=== PATIENT | male | born 1975 | race Caucasian/White ===

== ENCOUNTER 2019-08-14 10:36 | Emergency (ER) | payer SELFPAY ==
[~2019-08-14] VITALS: Ht 182.9 cm; Wt 100.0 kg
[2019-08-14 10:54] VITALS: BP 160/85; TEMP 98.2
[2019-08-14 11:30] LABS: COLLECTION METHOD CLEAN CATCH
[2019-08-14 11:40] LABS: PH 7 (5-8); SQUAMOUS EPITHELIAL None Seen /hpf; URINE APPEARANCE Clear; URINE BACTERIA None Seen /hpf; URINE BILIRUBIN Negative (NEGATIVE); URINE BLOOD Negative (NEGATIVE); URINE COLOR Yellow; URINE GLUCOSE Negative (NEGATIVE); URINE KETONE Negative (NEGATIVE); URINE LEUKOCYTE ESTERASE Negative (NEGATIVE); URINE NITRATE Negative (NEGATIVE); URINE PROTEIN(semi-quant) Negative (NEGATIVE); URINE RBC 0-2 /hpf; URINE UROBILINOGEN Negative (NEGATIVE)
[2019-08-14] MEDS ORDERED: NORCO 325 MG-51 TAB PO (13:18)
[2019-08-14 13:30] VITALS: PULSE 85
== END 2019-08-14 13:35 | disposition home or self-care (01) ==
LOC: COL.ER 10:36
PROVIDERS: Emergency Medicine
DX: K40.90 Unilateral inguinal hernia, without obstruction or gangrene, not specified as recurrent (principal)
CPT/HCPCS: J1885

== ENCOUNTER 2021-02-09 10:28 | Emergency (ER) | payer SELFPAY ==
[~2021-02-09] VITALS: Ht 180.3 cm; Wt 104.5 kg
[~2021-02-09 10:28] MED LIST: NORCO 325 MG-51 TAB PO
[2021-02-09 11:42] LABS: BASO % 0.5 % (0.0-2.0); EOS # 0.4 (0.0-0.7); EOS % 4.6 % (0-4.0); GRAN # 4.9 (1.4-6.5); GRAN % 65.4 % (42.2-75.2); HEMATOCRIT 40.7 % (42.0-52.0); HEMOGLOBIN 13.5 g/dl (13.5-18.0); LYMPH # 1.8 (1.2-3.4); LYMPH % 23.2 % (20.0-51.0); MEAN CELL VOLUME 91 fl (80.0-100.0); MEAN CORPUSCULAR HEMOGLOBIN 30 pg (27.0-31.0); MEAN CORPUSCULAR HGB CONC 33 g/dl (33.0-37.0); MEAN PLATELET VOLUME 10.4 fl (7.4-10.4); MONO # 0.4 (0.1-0.6); MONO % 5.8 % (1.7-9.3); PLATELET COUNT 280 K/mm3 (130-400); RED BLOOD COUNT 4.49 M/mm3 (4.20-5.60); REDCELL DISTRIBUTION WIDTH-CV 13.2 % (11.5-14.5)
[2021-02-09 12:32] LABS: ALANINE AMINOTRANSFERASE 16 U/L (4-49); ALBUMIN 3.5 gm/dL (3.5-5.0); ALKALINE PHOSPHATASE 69 U/L (50-136); ANION GAP 1 mmol/L (7-16); AST,SGOT 22 U/L (15-37); BILIRUBIN,TOTAL 0.3 mg/dL (0.0-1.0); BLOOD UREA NITROGEN 14 mg/dL (9-20); C-REACTIVE PROTEIN < 0.5 mg/dL (0.0-0.9); CALCIUM 8.2 mg/dL (8.4-10.2); CARBON DIOXIDE 25 mmol/L (22-30); CHLORIDE 109 mmol/L (98-107); CREATININE, serum 0.85 (0.66-1.25); GLUCOSE 101 mg/dL (74-106); POTASSIUM 3.9 mmol/L (3.4-5.0); SODIUM 135 mmol/L (137-145); TOTAL PROTEIN 6.2 gm/dL (6.4-8.2)
[2021-02-09 15:40] VITALS: BP 146/104; PULSE 73; TEMP 97.5
== END 2021-02-09 15:40 | disposition home or self-care (01) ==
LOC: COL.ER 10:28
PROVIDERS: Family Medicine; Nurse Practitioner
DX: K40.90 Unilateral inguinal hernia, without obstruction or gangrene, not specified as recurrent (principal); Z88.6 Allergy status to analgesic agent
CPT/HCPCS: J2405; J3010; J7030; Q9967

== ENCOUNTER 2022-02-28 13:30 | Emergency (ER) | payer OTHER ==
[~2022-02-28] VITALS: Ht 182.9 cm; Wt 113.6 kg
[2022-02-28 13:38] VITALS: BP 167/126; PULSE 110; TEMP 98
[2022-02-28] MEDS ORDERED: NORCO 325 MG-51 TAB PO (14:41)
[2022-02-28] MEDS ORDERED: CEPHALEXIN500 M1 PO (14:41)
== END 2022-02-28 15:05 | disposition home or self-care (01) ==
LOC: COL.ER 13:30
DX: S62.635A Displaced fracture of distal phalanx of left ring finger, initial encounter for closed fracture (principal); S61.214A Laceration without foreign body of right ring finger without damage to nail, initial encounter; Z88.6 Allergy status to analgesic agent; Z23 Encounter for immunization; Z28.310 Unvaccinated for COVID-19; W23.0XXA Caught, crushed, jammed, or pinched between moving objects, initial encounter; Y92.59 Other trade areas as the place of occurrence of the external cause; Y99.0 Civilian activity done for income or pay